=== PATIENT | male | born 1970 | race Caucasian/White ===

== ENCOUNTER 2020-07-27 11:08 | Emergency (ER) | payer OTHER, SELFPAY ==
--- NOTE | ~2020-07-27 | XR_ITS ---
EXAMINATION: XR finger 3rd RT min 2V DATE: 07/27/2020 11:42 INDICATION: Right hand third digit injury. TECHNIQUE: 4 views of right hand third digit were obtained. COMPARISON: None. FINDINGS: Bone alignment is normal. No fracture. 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 IMPRESSION: 1. No fracture. Reviewed, dictated and finalized at location A. IMPRESSION: 1. No fracture.
[2020-07-27 11:28] VITALS: BP 128/86; PULSE 60; RESP 16; TEMP 36.4; O2SAT 100
--- NOTE | 2020-07-27 11:33 | ED.UPPEXIN ---
HPI - Extremity Injury (Upper) General Chief Complaint: Extremity Injury, Upper Stated Complaint: Extremity Injury, Upper Time Seen by Provider: 07/27/20 11:33 Source: patient and RN notes reviewed History of Present Illness HPI narrative: Patient is a 50-year-old male who presents the urgent care with complaints of the third right finger injury. Patient states that he slammed it in between the barbell in the rack yesterday at the gym. Patient states that initially it was painful but he noticed last night that it became increase in swelling and pain. Patient has not taken anything [id number] for the pain. No other acute complaints. No acute distress noted. Patient aware of the plan of care. Some parts of this dictation were generated by voice recognition software and may contain typographical and/or grammatical inaccuracies. Related Data Home Medications Medication Instructions Recorded Confirmed No Home Medications 07/27/20 07/27/20 Allergies Allergy/AdvReac Type Severity Reaction Status Date / Time No Known Allergies Allergy Verified 07/27/20 11:22 Review of Systems Review of Systems: Narrative: CONSTITUTIONAL: Denies fever, chills, or sweats. EYES: Denies visual changes, redness, or discharge. ENT: Denies rhinorrhea, congestion, sore throat, or otalgia. CARDIOVASCULAR: Denies chest pain, palpitations, or edema. RESPIRATORY: Denies cough or dyspnea. GASTROINTESTINAL: Denies abdominal pain, nausea, vomiting, or diarrhea. GENITOURINARY: Denies dysuria or hematuria. SKIN: Denies rash or itching. MUSCULOSKELETAL: Reports of right finger injury with swelling and bruising NEUROLOGIC: Denies headache, numbness, or weakness. All other systems reviewed are negative, except as documented in HPI. PMFSH Comments At the time of my signature, I reviewed and agree with the nursing past medical, surgical, social, and family history. There is no relevant family history pertinent to the patient complaint. Exam Narrative: Exam Narrative: GENERAL: This is a well-nourished, well-developed patient, in no apparent distress. HEAD: normocephalic, atraumatic. EYES: PERRL. Sclera clear/white. Vision is grossly intact. EARS: External ears normal NOSE: External nose normal with no obvious nasal discharge, nares without redness, no rhinorrhea. THROAT: Mucous membranes moist SKIN: warm, intact with no suspicious lesions or rash, good texture and turgor. NEURO: awake, alert, and oriented to person, place and time. There were no obvious focal neurologic abnormalities. EXTREMITIES: Moderate ecchymosis and edema noted to the right third finger. Range of motion within normal limits with mild to moderate pain on flexion. Positive strong right radial pulse with capillary refill less than 2 seconds. Course Vital Signs Vital signs: Vital Signs Temperature 97.5 F L 07/27/20 11:28 Pulse Rate 60 07/27/20 11:28 Respiratory Rate 16 07/27/20 11:28 Blood Pressure 128/86 07/27/20 11:28 Pulse Oximetry 100 07/27/20 11:28 Temperature 97.5 F L 07/27/20 11:28 Pulse Rate 60 07/27/20 11:28 Respiratory Rate 16 07/27/20 11:28 Blood Pressure 128/86 07/27/20 11:28 Pulse Oximetry 100 07/27/20 11:28 Reviewed MDM - Extremity Injury (Upper) MDM Narrative Medical decision making narrative: Reviewed x-ray results with the patient. Aware the x-ray is negative for any deformity or fracture. Advised the patient to elevate the finger, use ice and take Tylenol/ibuprofen as needed for pain. If you develop any increase in pain associated with swelling or redness?go to the emergency room. If you notice no improvement over the past few days?may follow-up with referred plastics. Follow-up with your PCP within 2 to 5 days or for worsening symptoms or failure to improve. Differential Diagnosis Differential diagnosis: Likely finger sprain, dislocation of finger and fracture of hand Imaging Data Radiologist's impression: Boubacar Pichardo
== END 2020-07-27 12:05 | disposition home or self-care (01) ==
PROVIDERS: Emergency Provider Nurse Practitioner Family; PCP Internal Medicine Infectious Disease
DX: S60.031A Contusion of right middle finger without damage to nail, initial encounter (principal); X58.XXXA Exposure to other specified factors, initial encounter
CPT/HCPCS: 73140; 99213; G0463

== ENCOUNTER 2021-05-15 16:04 | Emergency (ER) | payer SELFPAY ==
[2021-05-15 16:10] VITALS: BP 129/77; PULSE 97; RESP 18; TEMP 37.1; O2SAT 99
--- NOTE | 2021-05-15 16:16 | ED.ABDPAIN ---
HPI - Abdominal Pain General Chief Complaint: Abdominal Pain Stated Complaint: stomach pains and diarrhea Time Seen by Provider: 05/15/21 16:17 Source: patient Mode of arrival: ambulatory Limitations: no limitations History of Present Illness HPI narrative: 51-year-old male presented for complaint of diarrhea for 3 days. Endorses associated abdominal cramping but states it is getting better since the onset. Endorses about 3-4 stools per day. Denies decreased appetite, has been tolerating bland foods and liquid. denies hematochezia or melena, nausea, vomiting, fever or chills, urinary complaints. Denies sick contacts. Patient is not vaccinated. Denies significant past medical history. Related Data Home Medications Medication Instructions Recorded Confirmed No Home Medications 07/27/20 05/15/21 Allergies Allergy/AdvReac Type Severity Reaction Status Date / Time No Known Allergies Allergy Verified 07/27/20 11:22 Review of Systems Review of Systems: CONSTITUTIONAL: Denies body aches, fever, chills, or sweats. EYES: Denies visual changes, redness, or discharge. ENT: Denies rhinorrhea, congestion CARDIOVASCULAR: Denies chest pain, palpitations, or edema. RESPIRATORY: Denies cough or dyspnea. GASTROINTESTINAL: Endorses abdominal cramping, diarrhea. Denies hematochezia, melena, hematemesis pain, nausea, vomiting GENITOURINARY: Denies dysuria or hematuria. SKIN: Denies rash MUSCULOSKELETAL: Denies back pain or myalgia. NEUROLOGIC: Denies headache, numbness, tingling, or weakness. PSYCH: Denies depression or anxiety. All systems reviewed & are unremarkable except as noted in HPI and below PMFSH Comments At time of signature, I have reviewed and agree with nursing past medical, surgical, social and family history unless otherwise noted. Please see nursing chart for further information. There is no relevant family history pertinent to the presenting complaint Exam Narrative: GENERAL: Well-appearing, well-nourished, and in no acute distress. HEAD: Normocephalic, atraumatic. EYES: EOMI. No redness or drainage. Conjunctivae normal. ENT: Mucous membranes pink and moist. NECK: Normal AROM. Supple. CHEST: No respiratory distress. Clear to auscultation. HEART: Regular rate and rhythm. No murmur appreciated. ABDOMEN: nontender abdomen, No guarding, rebound tenderness; abd soft, nondistended, normal active bowel sounds. MUSCULOSKELETAL: No bony tenderness. EXTREMITIES: Normal range of motion. No edema. SKIN: Warm, dry, no rash. Capillary refill normal. Normal skin turgor. NEURO: No focal deficits. Alert and oriented x3. Gait steady. PSYCH: Normal affect. No signs of depression or anxiety. Course Course Emergency Course: Given patient's unremarkable abdominal exam, patient is nontoxic-appearing, no fever, will treat symptomatically at this time. He will follow up with his PCP or go to the ER for any worsening condition. Patient is aware of diagnosis, understands and agrees to treatment plan. Anticipatory guidance given. Patient agrees to follow-up as directed and is aware of reasons to seek care at the emergency department. Portions of this record may have been created with voice recognition software Level of Care: Express Care Visit MDM - Abdominal Pain Differential Diagnosis Differential diagnosis: Likely abdominal pain, acute appendicitis, gastroenteritis and other (Food poisoning, C. difficile, viral infection, parasitic infection,) Discharge Plan Discharge Clinical Impression: Diarrhea Qualifiers: Diarrhea type: unspecified type Qualified Code(s): R19.7 - Diarrhea, unspecified Patient Disposition: Home, Self-Care Condition: Stable Instructions: Antibiotic Form, Acute Diarrhea (ED) Additional Instructions: Stay hydrated. Take small sips of fluid containing electrolytes frequently. Ok to add bland foods like bananas, rice, toast, and applesauce. You should go to the hospital if you exper
== END 2021-05-15 16:35 | disposition home or self-care (01) ==
PROVIDERS: Emergency Provider Nurse Practitioner Family; PCP Internal Medicine Infectious Disease
DX: R19.7 Diarrhea, unspecified (principal)
CPT/HCPCS: 99211; G0463

== ENCOUNTER 2024-10-17 11:48 | Emergency (ER) | payer OTHER, SELFPAY ==
--- OUTSIDE RECORDS SUMMARY | 2024-10-17 11:50 | XMS_ITS | Data Portability ---
Author Organization [facility] MAMADOUAvivaBeaulieu [facility] Address [address] [place] [place] [address] Assessment No assessment recorded. Plan of Treatment Reminders Order Date Submit Date Provider Last Modified By Organization Details Last Modified Time Details Appointments None recorded. Lab lipid panel, serum 2014 015 [facility], [address], [place], [address], 6 02:52:32 CMP, serum or plasma 2014 015 [facility], [address], [place], [address], 6 02:52:33 HBsAg (hepatitis B surface Ag), EIA, serum 2014 015 [facility], [address] [place] [address], [facility] [address], [place], [address], 5 10:20:48 hbcab (hepatitis B core Ab) igm, serum 2014 015 [facility], [address] [place] [address], [facility] [address], [place], [address], 5 10:06:02 hsv (1+2) igm Ab, serum 2014 015 [facility], [address] [place] [address], [facility] [address], [place], [address], 5 10:20:48 hsv (1+2) igg, serum 2014 015 [facility], [address] [facility], [address], [place], [address], 5 10:06:02 CT + NG DNA, PCR, unspecifie d specimen 2014 015 [facility], [address] [facility] [address], [address], [place], [address], 5 10:06:03 RPR (rapid plasma reagin), serum 2014 015 [facility], [address] [facility] [address], [address], [place], [address], 5 10:06:03 HIV (1+O+2) Ab, serum 2014 015 [facility], [address], [address], [place], [address], 5 10:06:02 hepatitis C Ab, signal-to- cutoff, serum or plasma 2014 015 [facility], [address] [facility], [address], [place], [address], 5 10:06:03 Referral pulmonolog ist referral - Patient is not having any problems with Asthma.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 No sob ,no wheezing,n o sob with exertion.H is work place did the Spirometry and the FVC decreased by 16% and FEV1 decreased by 12% compared to 2011.Jaymie grijalva recommeded Pulmonolog y evaluation . 2014 ATHENAFAX Not available 11:53:17 Procedures None recorded. Surgeries None recorded. Imaging None recorded. Medication Orders escitalopr am 20 mg tablet 2015 [id number], [address] , [place], [place], [id number], 6 09:43:16 Ventolin HFA 90 mcg/actuat ion aerosol inhaler 2015 016 [id number], [address] , [place], [place], [id number], 6 09:43:17 escitalopr am 20 mg tablet 2015 016 [id number], [address] , [place], [place], [id number], 6 17:53:47 Patient TargetsNo targets recorded. 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 [email or web address] Not available 08/25/2014 10:18:58 03/28/2015 [id number] When You Want to Lose Weight: Care Instructions [email or web address] Not available 03/28/2015 17:45:32 learning about mood disorders kkunche Not available 03/28/2015 17:45:32 05/16/2015 [id number] When You Want to Lose Weight: Care Instructions [email or web address] Not available 05/17/2015 10:01:23 08/16/2015 [id number] When You Want to Lose Weight: Care Instructions [email or web address] Not available 08/16/2015 11:07:05 Patient declined Tdap vaccination ,Influenza vaccination and Pneumovax vaccination. Advised patient to do the labs. 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 Referring Physician: Carlos Alejo, Internal Medicine, Encounter Date: 03/28/2015 Results Created Date Observation Date Name Description Value Unit Range Abnormal Flag Note LastModifiedBy Organization Detail LastModifiedTime 12/10/19 15 12/10/2014 hbcab (hepa titis B core Ab) igm, serum hepatitis B core antibody (IgM) NON-RE ACTIVE non-re active normal Not Available [address], [address], 12/10/2014 07:46:53 12/10/19 15 12/10/2014 hepat itis C Ab, serum hepatitis C antibody NON-RE ACTIVE non-re active normal Not Available [address], [address], 12/10/2014 07:46:53 12/10/19 15 12/10/2014 hepat itis C Ab, serum signal to cut-off 0.02 <1.00 normal Not Available [address], [address], 12/10/2014 07:46:53 12/10/19 15 12/13/2014 HBsAg (hepa titis B surfa ce Ag), serum donor, hep B surface Ag Nonrea ctive nonrea ctive This test is for eligi bilit y deter minat ion of Donor s of blood and blood compo nents and human cells , tissu es, and cellu lar and tissu e based produ cts (HCT/ Ps). This test is not inten ded to be used for routi ne clini tunde or routi ne diagn ostic evalu ation . Not Available [address], [address], 12/13/2014 15:59:14 12/10/19 15 12/13/2014 HIV (1+2) Ab, serum (dono r) donor, HIV 1/2 plus O Ab, screen Nonrea ctive nonrea ctive This test is for veronica bilit y mac minat ion of Donor s of blood and blood compo nents and human cells , tissu es, and cellu lar and tissu e based produ cts (HCT/ Ps). This test is not inten ded to be used for routi ne clini tunde or routi ne diagn ostic evalu ation . Not Available [facility] [address] [address] [place], [address], 12/13/2014 16:20:14 12/10/19 15 12/12/2014 hsv (1+2) igg, serum hsv 1 IgG type specific Ab 1.31 high Not Available [facility] [employer] [address] [address] [place], [address], 12/12/2014 03:45:06 12/10/19 15 12/12/2014 hsv (1+2) igg, serum hsv 2 IgG type specific Ab <0.90 REFER ENCE RANGE : <0.90 NEGAT BENITA INTER PRETI VE CRITE DELORES: <0.90 NEGAT BENITA 0.90- 1.10 EQUIV OCAL >1.10 POSIT BENITA This assay utili zes recom binan t type- speci fic antig ens to diffe renti ate HSV-1 from HSV-2 infec tions . A posit benita resul t canno t disti nguis h betwe en recen t and past infec tion. If recen t HSV infec tion is suspe cted but the resul ts are negat benita or equiv ocal, the assay shoul d be repea peri in 4-6 weeks . The perfo rmanc e kelli cteri stics of the assay have not been estab lishe d for pedia tric popul ation s, immun ocomp romis ed patie nts, or neona stephie scree carlos. Not Available [facility] [address] [address] [place], [address], 12/12/2014 03:45:06 12/10/19 15 12/11/2014 hsv (1+2) igm Ab, quant , serum , refle x titer hsv 1 IgM screen NEGATI VE Not Available [address], [address], 12/11/2014 23:45:13 12/10/19 15 12/11/2014 hsv (1+2) igm Ab, quant , serum , refle x titer hsv 2 IgM screen NEGATI VE REFER ENCE RANGE : NEGAT BENITA The IFA proce dure for measu ring IgM antib odies to HSV 1 and HSV 2 detec ts both type- commo n and type- speci fic HSV antib odies . Thus, IgM react ivity to both HSV 1 and HSV 2 may repre sent cross react benita HSV antib odies rathe r than expos ure to both HSV 1 and HSV 2. This test was devel oped and its perfo rmanc e kelli cteri stics have been deter mined by Laverne tinoco. Perfo rmanc e kelli cteri stics refer to the david tical perfo rmanc e of the test. Not Available [address] [place], [address], 12/11/2014 23:45:13 12/10/19 15 12/10/2014 CT + NG RNA, PCR, unspe cifie d speci men chlamydia trachomatis RNA, tma NOT DETECT ED not detect ed normal Not Available [facility] [address], [address], 12/10/2014 17:36:31 12/10/19 15 12/10/2014 CT + NG RNA, PCR, unspe cifie d speci men neisseria gonorrhoeae RNA, tma NOT DETECT ED not detect ed normal Not Available [facility] [address] [place], [address], 12/10/2014 17:36:31 12/10/19 15 12/10/2014 CT + NG RNA, PCR, unspe cifie d speci men comment This test was perfo rmed using the APTIM A COMBO 2 Assay ([employer] . The david tical perfo rmanc e kelli cteri stics of this assay , when used to test SureP ath speci mens have been deter mined by [facility] adrianna tinoco. Not Available [facility] [address] [address] [place], [address], 12/10/2014 17:36:31 12/10/19 15 12/10/2014 RPR (rapi d plasm a reagi n), serum RPR (DX) w/refl titer and confirmatory testing NON-RE ACTIVE non-re active normal Not Available [facility] [address], [address], 12/10/2014 16:20:21 09/02/19 16 09/03/2015 lipid panel , serum cholesterol, total 175 mg/dL 125-20 0 normal Not Available [facility] [address], [address], 09/03/2015 02:52:32 09/02/19 16 09/03/2015 lipid panel , serum HDL cholesterol 46 mg/dL > or = 40 normal Not Available [facility] [address], [address], 09/03/2015 02:52:32 09/02/19 16 09/03/2015 lipid panel , serum triglyceride s 88 mg/dL <150 normal Not Available [facility] [address], [address], 09/03/2015 02:52:32 09/02/19 16 09/03/2015 lipid panel , serum LDL-choleste rol 111 mg/dL _(tunde c) <130 normal Mary able range <100 mg/dL for patie nts with CHD or diabe dave and <70 mg/dL for diabe tic patie nts with known heart disea se. Not Available [facility] [address] [address] [place], [address], 09/03/2015 02:52:32 09/02/19 16 09/03/2015 lipid panel , serum chol/HDLC ratio 3.8 (calc ) < or = 5.0 normal Not Available [address], [address], 09/03/2015 02:52:32 09/02/19 16 09/03/2015 lipid panel , serum non HDL cholesterol 129 mg/dL _(tunde c) normal Targe t for non-H DL jalen stero l is 30 mg/dL highe r than LDL jalen stero l targe t. Not Available [address], [address], 09/03/2015 02:52:32 09/02/19 16 09/03/2015 CMP, serum or plasm a glucose 85 mg/dL 65-99 normal Fasti ng refer ence inter sangeetha Not Available [address], [address], 09/03/2015 02:52:33 09/02/19 16 09/03/2015 CMP, serum or plasm a urea nitrogen (BUN) 13 mg/dL 7-25 normal Not Available [address], [address], 09/03/2015 02:52:33 09/02/19 16 09/03/2015 CMP, serum or plasm a creatinine 1.13 mg/dL 0.60-1 .35 normal Not Available [address], [address], 09/03/2015 02:52:33 09/02/19 16 09/03/2015 CMP, serum or plasm a eGFR non-afr. [place] citizen 79 mL/mi n/1.7 3m2 > or = 60 normal Not Available [address], [address], 09/03/2015 02:52:33 09/02/19 16 09/03/2015 CMP, serum or plasm a eGFR 91 mL/mi n/1.7 3m2 > or = 60 normal Not Available [address], [address], 09/03/2015 02:52:33 09/02/19 16 09/03/2015 CMP, serum or plasm a BUN/creatini ne ratio NOT APPLIC ABLE (calc ) 6-22 Not Available [address], [address], 09/03/2015 02:52:33 09/02/19 16 09/03/2015 CMP, serum or plasm a sodium 139 mmol/ L 135-14 6 normal Not Available [address], [address], 09/03/2015 02:52:33 09/02/19 16 09/03/2015 CMP, serum or plasm a potassium 4.1 mmol/ L 3.5-5. 3 normal Not Available [address], [address], 09/03/2015 02:52:33 09/02/19 16 09/03/2015 CMP, serum or plasm a chloride 103 mmol/ L 98-110 normal Not Available [address], [address], 09/03/2015 02:52:33 09/02/19 16 09/03/2015 CMP, serum or plasm a carbon dioxide 29 mmol/ L 19-30 normal Not Available [address], [address], 09/03/2015 02:52:33 09/02/19 16 09/03/2015 CMP, serum or plasm a calcium 9.3 mg/dL 8.6-10 .3 normal Not Available [address], [address], 09/03/2015 02:52:33 09/02/19 16 09/03/2015 CMP, serum or plasm a protein, total 7.3 g/dL 6.1-8. 1 normal Not Available [address], [address], 09/03/2015 02:52:33 09/02/19 16 09/03/2015 CMP, serum or plasm a albumin 4.3 g/dL 3.6-5. 1 normal Not Available [address], [address], 09/03/2015 02:52:33 09/02/19 16 09/03/2015 CMP, serum or plasm a globulin 3.0 g/dL_ (calc ) 1.9-3. 7 normal Not Available [address], [address], 09/03/2015 02:52:33 09/02/19 16 09/03/2015 CMP, serum or plasm a albumin/glob ulin ratio 1.4 (calc ) 1.0-2. 5 normal Not Available [address], [address], 09/03/2015 02:52:33 09/02/19 16 09/03/2015 CMP, serum or plasm a bilirubin, total 0.4 mg/dL 0.2-1. 2 normal Not Available [address], [address], 09/03/2015 02:52:33 09/02/19 16 09/03/2015 CMP, serum or plasm a alkaline phosphatase 47 U/L 40-115 normal Not Available [facility] [employer] [address] [address] [place], [address], 09/03/2015 02:52:33 09/02/19 16 09/03/2015 CMP, serum or plasm a AST 27 U/L 10-40 normal Not Available [address], [address], 09/03/2015 02:52:33 09/02/19 16 09/03/2015 CMP, serum or plasm a ALT 22 U/L 9-46 normal Not Available [facility] [address], [place], [address], 09/03/2015 02:52:33 03/30/20 15 03/16/2015 pulmo nary funct ion test* No observ ation record ed. [email or web address] Not Available 15:31:50 Result Notes None recorded. Problems Name Problem SNOMED Code Status Onset Date Resolution Date Notes Provider Name and Address Organization Details Recorded Time Depressive disorder 28461560 Active Carlos Alejo null, [place] - [facility] 5 17:45:32 Low back pain 563184344 Active Maria L perez [place], [place] [facility] 5 09:35:42 Asthma 980971849 Active Maria L perez [place], [place] [facility] 5 09:35:42 Mild intermittent asthma 482833659 Active Carlos Alejo [place] [facility] 6 09:43:16 Obesity 204881972 Active Carlos Alejo [place] [facility] 6 17:53:47 Chronic depression 296714909 Active Carlos Alejo [place] [facility] 6 09:43:16 Morbid obesity 021995961 Active [place] Alejo [place] [facility] 6 09:43:16 Problem Notes None recorded. Procedures Surgical History Date Name Laterality Status Provider Name and Address Organization Details Recorded Time Vasectomy completed Maria L Bean MA [place] - [facility] 08/25/2014 09:35:42 Imaging Results None recorded. Procedure Notes None recorded. Medical Equipment None Reported. Allergies No known drug allergies Medications Name Sig Start Date Stop Date Status Note LastModified by Organization Details LastModified Time amoxicillin 500 mg capsule active Not Available Not Available Not Available hydrocodone 5 mg-acetamino phen 325 mg tablet active Not Available Not Available Not Available terbinafine HCl 250 mg tablet Take 1 tablet every day by oral route for 30 days. active Not Available Not Available No t Available diclofenac sodium 50 mg tablet,delay ed release active Not Available Not Available N ot Available Ventolin HFA 90 mcg/actuatio n aerosol inhaler Inhale 2 puffs every 6 hours by inhalation route as needed. active Not Available Not Available No t Available ciclopirox 0.77 % topical cream active Not Available Not Available Not Available escitalopram 10 mg tablet TAKE 1 TABLET BY MOUTH EVERY DAY active Not Available Not Available No t Available escitalopram 20 mg tablet TAKE 1 TABLET BY MOUTH EVERY DAY active Not Available Not Available No t Available naftifine 2 % topical cream active Not Available Not Available Not Available Naftin 2 % topical gel active Not Available Not Available Not Available Vitals Date Recorded Body temperature Body mass index (BMI) Heart rate Body weight Respiratory rate Oxygen saturation Oxygen saturation in Arterial blood by Pulse oximetry Body height Systolic And Diastolic Provider Name and Address Organization Details Last Updated DateTime 6 98.1 [degF] 39.4 kg/m2 74 /min 258640. 09712 g 16 /min 99 % 99 % 167.64 cm 110/80 mm[Hg] Maria L perez MA [facility] 6 17:09:13 Date Recorded Body height Body weight Heart rate Oxygen saturation Oxygen saturation in Arterial blood by Pulse oximetry Body temperature Respiratory rate Body mass index (BMI) Systolic And Diastolic Provider Name and Address Organization Details Last Updated DateTime 6 167.64 cm 884379. 47600 g 70 /min 96 % 96 % 97.9 [degF] 16 /min 40.5 kg/m2 120/90 mm[Hg] Maria L perez MA [facility] 6 09:20:18 Date Recorded Respiratory rate Oxygen saturation Oxygen saturation in Arterial blood by Pulse oximetry Body weight Heart rate Body mass index (BMI) Body height Body temperature Systolic And Diastolic Provider Name and Address Organization Details Last Updated DateTime 5 14 /min 98 % 98 % 768897. 73140 g 64 /min 38.3 kg/m2 167.64 cm 98.2 [degF] 120/80 mm[Hg] Maria L perez MA [facility] 5 09:43:19 Date Recorded Respiratory rate Body weight Oxygen saturation Oxygen saturation in Arterial blood by Pulse oximetry Body temperature Heart rate Body height Body mass index (BMI) Systolic And Diastolic Provider Name and Address Organization Details Last Updated DateTime 5 14 /min 549242. 69232 g 100 % 100 % 97.9 [degF] 66 /min 167.64 cm 37.4 kg/m2 120/70 mm[Hg] Maria L perez MA [facility] 5 09:30:17 Date Recorded Respiratory rate Body weight Oxygen saturation Oxygen saturation in Arterial blood by Pulse oximetry Body height Body mass index (BMI) Body temperature Heart rate Systolic And Diastolic Provider Name and Address Organization Details Last Updated DateTime 5 16 /min 298355. 17541 g 99 % 99 % 167.64 cm 39.4 kg/m2 97.7 [degF] 84 /min 120/70 mm[Hg] Maria L Tannermitchel DOMINGO perez [facility] 5 11:04:03 Social History Question Answer Notes LastModified by [email or web address] Details LastModified Time Tobacco Smoking Status Former Smoker [facility] 08/25/2014 09:35:42 How Much Tobacco Do You Smoke? 0.5 PPD Information not available 08/25/2014 Sex: Unknown Functional Status Question Answer Note LastModified by [employer] Details LastModified Time What is your level of alcohol consumption? Moderate 2-4 drinks once a weekly Information not available 08/25/2014 Mental Status None recorded. Family History Nothing Reported. Medical History Condition Response Depression Y Muscle, Joint, or Bone Problems Y Asthma Y Past Encounters Encounter ID Performer Location Encounter Start Date Encounter Closed Date Diagnosis/Indication Diagnosis SNOMED-CT Code Diagnosis ICD10 Code Diagnosis Note [id number] MD Stef Saab (Adult Med) [address] [place] [address] 08/25/2014 09:07:26 08/25/2014 10:12:17 Depressive disorder 80613840 Stable on Lexapro. Mild inter mittent asthma 062821855 Continue Ventolin Hfa 2 uffs q 6h prn. Patient is using Ventolin as needed.No regular symptoms. Obesity 736760215 Advise d patient less than [address] low fat,low cholestero l,low carb diet,regul ar exercise and weight reduction. [id number] MD Stef Saab (Adult Med) [address] [place] [address] 12/08/2014 09:06:52 12/08/2014 10:23:18 High risk sexual behavior 741976040 Patient wants to check for STD screening. High risk sexual behavior. Asymptomat ic. 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 No sob ,no wheezing,n o sob with exertion.H is work place did the Spirometry and the FVC decreased by 16% and FEV1 decreased by 12% compared to 2012.Emplo valentine recommende d Pulmonolog y evaluation . Continue Ventolin Hfa 2 uffs q 6h prn. Depressive disorder 3548 9007 F32.9 Stable on Lexapro. Obesity 332454155 E66.09 Advised patient less than [address] low fat,low cholestero l,low carb diet,regul ar exercise and weight reduction. [id number] MD Stef Saab (Adult Med) [address] [place] [address] 05/16/2015 15:47:04 05/17/2015 16:30:37 Chronic depression 767494149 F34.1 Patient is c/o more anxiety and depression . will increase the Lexapro to 20 mg po daily. Advised regular exercise. Obesity 816499588 E66.09 Advised patient less than [address] low fat,low cholestero l,low carb diet,regul ar exercise and weight reduction. [id number] MD Stef Saab (Adult Med) [address] [place] [address] 08/16/2015 08:57:00 08/16/2015 10:21:27 Chronic depression 299521069 F34.1 Anxiety and depression well controlled with Lexapro. Continue Lexapro to 20 mg po daily. Advised regular exercise. Mild inter mittent asthma 614719897 J45.20 No active symptoms. Continue Ventolin hfa 2 puffs q 6h prn. Morbid obesity 733443608 E66.01 Advised patient less than [address] low fat,low cholestero l,low carb diet,regul ar exercise and weight reduction. Health Concerns Section Related Observation LastModified by Organization Detai ls LastModified Time None Recorded Concern Status LastModified by Organization Details LastModified Time None Recorded Advance Directives Directive None Recorded Payers Insurance Date Sequence Insurance Name Policy Number Policy Mccoy Covered Member ID Mccoy Member ID Guarantor Name 09/26/2017 1 [employer] (POS II) [id number] Devaughn Balderas [id number] Devaughn Balderas Notes Date Note Type Note Provider Name and Address Organization Details Recorded Time 5 text/html Anxiety/DepressionReport ed bypatient.Quality:sympto ms improved Modifying Factors:medications as directed Associated Symptoms:denies homicidal ideations; mood good; no anxiety; maintaining functionalityAsthma F/UReported bypatient.Severity:does not interfere with daily activities Associated Symptoms:no fever; no fatigue; no irritability; no cough; normal appetite; no changes in productivity; no shortness of breathNotes:Patient is not having any problems with Asthma.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 LARON Turk S[facility] 03/28/2015 17:45:54 6 text/html Anxiety/DepressionReport ed bypatient.Quality:mood worse;increased anxiety Severity:denies suicidal ideations;interference with household activities Context:no major life stressors Associated Symptoms:denies homicidal ideations; no visual/auditory hallucinations; no delusions; no crying spells;high irritability;anxiety;dep ression LARON Turk SICatherine 05/16/2015 17:54:03 6 text/html Anxiety/DepressionReport ed bypatient.Quality:sympto ms improved Severity:denies suicidal ideations; able to maintain relationships; does not interfere with activities of daily living Associated Symptoms:denies homicidal ideations; mood good; no anxiety; no crying spells; sleeping well; appetite good; energy good; maintaining functionalityAsthma F/UReported bypatient.Severity:does not interfere with daily activities; Using inhaler as needed. Associated Symptoms:no fatigue; no cough; no changes in productivity; no shortness of breath Elza Velazquez RN [facility], [place] - [facility] 08/22/2015 14:06:08
--- OUTSIDE RECORDS SUMMARY | 2024-10-17 11:50 | XMS_ITS | Referral Summary ---
Author Organization [facility] [address] Address [address] [employer] [place] [address] Phone Care Team Providers Care Ocean Rescue Lieutenant Name Role Phone Shravan Escobar MD Primary Care Provider [phone] Allergies No known active allergies Medications albuterol HFA (PROVENTIL HFA,VENTOLIN HFA) 90 mcg/actuation inhalerIndicati ons:Exercise-in duced asthma Inhale 2 puffs every 4 (four) hours as needed for wheezing. 18 g 3 11/22/2016 Active LORazepam (ATIVAN) 1 mg tabletIndicatio ns:Reaction, adjustment, with anxious, depressed mood Take 1 tablet (1 mg total) by mouth nightly as needed for anxiety 30 tablet 2 04/13/2021 Active Active Problems Problem Noted Date Diagnosed Date Reaction, adjustment, with anxious, depressed mo od 01/13/2019 Overview (01/29/2020): Toxic relationship with his girlfriend. Not suicidal. Assessment & Plan (04/22/2021 2:28 PM WAREHOUSE RECORD CLERK): He continues to have ups and downs in his relationship with a younger woman. She is technically a tenant in his home. The relationship runs hot and cold. Recently he decided he had to break it off and essentially gave her a notice that she needed to leave by June 12. After that, their relationship stirred again, but he then found out that she had been seeing someone on the side. All of this has him very confused and sad. He cries when she goes to work because he misses her. He feels anxious and has trouble focusing. 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 He is not sleeping well. He denies feeling suicidal. He has good relationships with his family, and spoke to his sister for 3 hours last night. He did not benefit from Lexapro when we prescribed previously for a similar situation, although he only took one or two doses. He had good results talking to a counselor last time, but he currently does not have insurance so he has not spoken to his counselor recently. We discussed that he should probably make a clean break from this relationship, and look more towards the future than the past. We recommended that he continue talking to family and hopefully resume counseling when he gets his insurance with his new job. For the anxiety and sleep disorder, we will give him a small number of Ativan, risks of medication discussed. Follow-up in one month. Assessment & Plan (02/23/2020 8:33 AM WAREHOUSE RECORD CLERK): He is doing better, feeling more at ease. He has only use the Xanax 3 times in the last two weeks. On one occasion it did not seem to make a difference, but on the other occasions it did help him calm down. He remains off work and this is probably helping as well. We will keep him off work until February 21. He has also had one remote counseling session which he says went well. It gave him insight into his feelings. Today he is at ease and mild mannered. There is no evidence of depression, thought disorder or delusional thinking. For follow-up, he prefers to return as scheduled in November of next year, but says he will call if an early follow-up is needed for anything. Assessment & Plan (02/06/2020 2:58 PM CDT): He has had a troubled relationship for about a year with his younger girlfriend. She was apparently abandoned by her father and has her own issues, but they are basically incompatible. They have talked about things before, but nothing seems to get resolved. The last two weeks have been especially bad, and he decided to get some help. He went to [facility] and they told him to talk to me. He is also getting telephone counseling with a SENIOR JAVA WEB APPLICATION DEVELOPER. His mood is up and down. He gets angry easily. He is depressed but not suicidal, and at times is anxious. He is not sleeping well. He does not want to go back on an antidepressant. He did not find that it helped much in the past. We will put him on a low-dose of Xanax, risks of medication discussed. We will keep him off work for two weeks and have him follow-up before going back to see how he is doing. Obesity (BMI 30-39.9) 05/02/2016 Assessment & Plan (04/22/2021 2:31 PM WAREHOUSE RECORD CLERK): His weight is basically unchanged. We discussed that eating right, regular activity and significant weight loss could help him feel better emotionally. Assessment & Plan (11/30/2020 9:33 AM CDT): His weight is down a few lb. We encouraged continued attention to his diet, and a little bit more weight loss. Fasting blood sugar on his last set of labs was minimally elevated. Lab Results Component Value Date GLUCOSE 106 (H) 02/09/2020 CALCIUM 9.8 02/09/2020 SODIUM 143 02/09/2020 POTASSIUM 5.0 02/09/2020 CO2 31 02/09/2020 CHLORIDE 105 02/09/2020 BUNSER 15 02/09/2020 CREATININE 1.24 02/09/2020 Lab Results Component Value Date ALT 20 02/09/2020 AST 18 02/09/2020 ALKPHOS 53 02/09/2020 BILITOT 0.5 02/09/2020 Sciatica 01/22/2014 Overview (07/19/2016): Sciatica Male erectile disorder 11/13/2013 Assessment & Plan (11/23/2019 3:52 PM CDT): He requested a refill of sildenafil which we sent in. Low testosterone 11/13/2013 Persistent mood disorder 11/13/2013 Assessment & Plan (11/30/2020 9:32 AM CDT): He is doing much better. He is no longer needing alprazolam/Xanax. In fact he only ever took one or two doses. We discontinued medication from his list. Assessment & Plan (11/29/2019 4:42 PM CDT): Mood is much better. He stopped taking citalopram a couple of years ago. There has been no relapse of his previous mood problems. Low back pain 01/14/2012 Overview (11/23/2019): Arthritis and bulging disks. Sees a chiropractor. Improved with significant weight loss. Assessment & Plan (11/30/2020 9:33 AM CDT): He has some issues with chronic low back pain and occasional right sciatic radiation, nothing severe or even persistent. He takes Tylenol as needed. Weight loss has improved his back. Assessment & Plan (11/23/2019 3:52 PM CDT): This has significantly improved since he lost weight. He no longer takes any nonsteroidals. He continues efforts to shed more weight. Exercise-induced asthma 04/15/2009 Assessment & Plan (11/30/2020 9:33 AM CDT): He has an albuterol inhaler for use as needed. Lungs are clear and oxygen saturation is normal. Continue same. Assessment & Plan (11/23/2019 3:51 PM CDT): He has mild asthma. He uses an inhaler as needed. Lungs are clear and oxygen saturation is normal. Continue same. History of tobacco use 10/13/1988 Assessment & Plan (11/23/2019 3:51 PM CDT): He was an in different smoker for about 10 years. He has not smoked in over 20 years. Social History Tobacco Use Types Packs/Day Years Used Date Smoking Tobacco: Former Cigarettes - 1994 Smokeless Tobacco: Former Tobacco Cessation:Counseling Given: Yes Comments:Some day smoker in the past. Alcohol Use Standard Drinks/Week Comments Yes 0 (1 standard drink = 0.6 oz pur e alcohol) PHQ-2 Answer Date Recorded PHQ-2 Total Score (If total score is 3 or more points, staff should administer the PHQ-9) 4 04/13/2021 Sex and Gender Information Value Date Recorded Sex Assigned at Not on file Legal Sex Male 5:39 PM WAREHOUSE RECORD CLERK Gender Identity Not on file Sexual Orientation Not on file Last Filed Vital Signs Vital Sign Reading Time Taken Comments Blood Pressure 130/86 04/13/2021 12:56 PM WAREHOUSE RECORD CLERK Pulse 79 04/13/2021 12:56 PM WAREHOUSE RECORD CLERK Temperature 36.1 C (96.9 F) 04/13/2021 12:56 PM WAREHOUSE RECORD CLERK Respiratory Rate 12 04/13/2021 12:56 PM WAREHOUSE RECORD CLERK Oxygen Saturation 98% 04/13/2021 12:56 PM WAREHOUSE RECORD CLERK Inhaled Oxygen Concentration - - Weight 104.8 kg (231 lb) 04/13/2021 12:56 PM WAREHOUSE RECORD CLERK Height 167.6 cm (5' 6) 11/30/2020 8:59 AM CDT Body Mass Index 37.28 11/30/2020 8:59 AM CDT Plan of Treatment Not on file Insurance [facility] PPO Care Teams Ocean Rescue Lieutenant Relationship Specialty Start Date End Date Shravan Escobar MD [address] [place] [address] PCP - General Infectious Diseases 10/08/16
--- OUTSIDE RECORDS SUMMARY | 2024-10-17 11:50 | XMS_ITS | Clinical Summary ---
Author Organization [facility] [address] Address [address] [place] [address] Phone Care Team Providers Care Taximeter Repairer Name Role Phone Shravan Escobar MD Primary Care Provider [phone] Allergies No known active allergies Medications albuterol [...] suicidal. Assessment & Plan (04/22/2021 2:28 PM MANAGER ASSET MANAGEMENT): He continues to have ups and downs [...] month. Assessment & Plan (02/23/2020 8:33 AM MANAGER ASSET MANAGEMENT): He is doing better, feeling more at [...] is also getting telephone counseling with a MEDICAL SUPPORT ASSISTANT. His mood is up and down. He [...] 05/02/2016 Assessment & Plan (04/22/2021 2:31 PM MANAGER ASSET MANAGEMENT): His weight is basically unchanged. We discussed [...] has not smoked in over 20 years. 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 Medical History Medical History Date Comments Exercise-induced asthma Asthma Chicken pox 1975 Non morbid obesity 05/02/2016 Covid-19 01/04/2021 Mild illness wit h positive test reported by patient, details lacking. Family History * Patient is adopted Medical History Relation Name Comments Other Father Back problems. Arthritis Mother Relation Name Status Comments Father Alive Mother Alive Social History Tobacco Use Types Packs/Day Years Used Date Smoking Tobacco: Former Cigarettes 1994 Smokeless Tobacco: Former Tobacco Cessation:Counseling Given: [...] on file Legal Sex Male 5:39 PM MANAGER ASSET MANAGEMENT Gender Identity Not on file Sexual Orientation Not on file Obstetrics History Last Filed Vital Signs Vital Sign Reading Time Taken Comments Blood Pressure 130/86 04/13/2021 12:56 PM MANAGER ASSET MANAGEMENT Pulse 79 04/13/2021 12:56 PM MANAGER ASSET MANAGEMENT Temperature 36.1 C (96.9 F) 04/13/2021 12:56 PM MANAGER ASSET MANAGEMENT Respiratory Rate 12 04/13/2021 12:56 PM MANAGER ASSET MANAGEMENT Oxygen Saturation 98% 04/13/2021 12:56 PM MANAGER ASSET MANAGEMENT Inhaled Oxygen Concentration - - Weight 104.8 kg (231 lb) 04/13/2021 12:56 PM MANAGER ASSET MANAGEMENT Height 167.6 cm (5' 6) 11/30/2020 8:59 AM CDT Body Mass Index 37.28 11/30/2020 8:59 AM CDT Plan of Treatment Not on file Insurance [facility] PPO Care Teams Taximeter Repairer Relationship Specialty Start Date End Date Shravan Escobar MD [address] [place] [address] PCP - General Infectious Diseases 10/08/16
--- OUTSIDE RECORDS SUMMARY | 2024-10-17 11:50 | XMS_ITS | Clinical Summary ---
Author Organization [facility] Address [address], [facility] [address] [place] [address] Phone Care Team Providers Care Certified Coder Name Role Phone Unavailable Primary Care Provider Unavailabl e Allergies No known active allergies Medications ALBUTEROL IN take by inhalation . Active Active Problems Problem Noted Date Diagnosed Date Physical exam, annual (Adult) 05/02/2016 Non morbid obesity due to excess calories 2016 Mild intermittent asthma without complication Family History * Patient is adopted Relation Name Status Comments Father Alive Mother Alive Social History Tobacco Use Types Packs/Day Years Used Date Smoking Tobacco: Former Cigarettes Q uit: 05/02/1995 Smokeless Tobacco: Former Alcohol Use Standard Drinks/Week Comments Yes 4 (1 standard drink = 0.6 oz pur e alcohol) Sex and Gender Information Value Date Recorded Sex Assigned at Not on file Legal Sex Male 9:48 PM CDT Gender Identity Not on file Sexual Orientation Not on file Last Filed Vital Signs Vital Sign Reading Time Taken Comments Blood Pressure 122/86 05/02/2016 3:29 PM HEATING ELEMENT BUILDER Pulse 73 05/02/2016 3:29 PM HEATING ELEMENT BUILDER Temperature 36.6 C (97.8 F) 05/02/2016 3:29 PM HEATING ELEMENT BUILDER Respiratory Rate 18 05/02/2016 3:29 PM HEATING ELEMENT BUILDER Oxygen Saturation 99% 05/02/2016 3:29 PM HEATING ELEMENT BUILDER Inhaled Oxygen Concentration - - Weight 112.9 kg (249 lb) 05/02/2016 3:29 PM HEATING ELEMENT BUILDER Height 167.6 cm (5' 6) 05/02/2016 3:29 PM HEATING ELEMENT BUILDER Body Mass Index 40.19 05/02/2016 3:29 PM HEATING ELEMENT BUILDER Plan of Treatment Health Maintenance Due Date Last Done Comments Hepatitis C Virus (HCV) Screening 1971 TdaP Immunization 1971 Pneumococcal Immunization Co mbined (1 of 2 - PCV) 1977 Hepatitis B Immunization (1 of 3 - 19+ 3-dose series) 1990 Pneumococcal Immunization (5 0+ years) (1 of 2 - PCV) 1990 Colonoscopy 2016 Colorectal Cancer Screening 2016 Cologuard 2021 Immunochemical Fecal Occult Blood 2021 Zoster Immunization (1 of 2) 2021 Influenza Immunization (#1) 2023 SARS-COV-2 Immunization ( - season) 2023 Respiratory Syncytial Virus (RSV) Immunization (Adult) (1 - 1-dose 75+ series) 2046 Meningococcal Immunization (ACWY) Aged Out No longer eligible based on patient's age to complete this topic Rotavirus Immunization Aged Out No lo nger eligible based on patient's age to complete this topic
[2024-10-17 12:03] VITALS: BP 141/90; PULSE 72; RESP 16; TEMP 36.6; O2SAT 100
--- NOTE | 2024-10-17 12:34 | ED.SKABFB ---
HPI - Skin/Abscess/Foreign Bdy General Chief complaint: Wound/Laceration Stated complaint: Skin Sore/Chest patient presents to the [facility] accompanied by 2 bouts with complaints of pain, redness, swelling to area in the center of chest that began over the last several days. Patient has been doing peroxide washes and applying triple antibiotic ointment with no relief of symptoms. Patient does report he is significantly itchy and occasionally does have rashes but no history of abscesses or anything like this. Denies fever, chills, body aches, or drainage from the area. Related Data Allergies Allergy/AdvReac Type Severity Reaction Status Date / Time No Known Allergies Allergy Verified 10/17/24 12:04 Review of Systems Constitutional: Constitutional: Reports as per HPI, Denies chills, Denies fatigue, Denies fever(s) and Denies weakness Eyes: Eyes: Reports no additional eye complaints Cardiovascular: Cardiovascular: Reports no additional cardiovascular complaints Respiratory: Respiratory: Reports no additional respiratory complaints Gastrointestinal: Gastrointestinal: Reports no additional gastrointestinal complaints Genitourinary: Genitourinary: Reports no additional male genitourinary complaints Musculoskeletal: Musculoskeletal: Reports no additional musculoskeletal complaints Integumentary/Breasts: Skin/Breast: Reports as per HPI, Denies breast pain, Denies breast mass, Denies pruritus, Reports erythema, Denies rash and Denies skin ulcer Comments: Abscess/ingrown hair chest wall Neurologic: Reports as per HPI, Denies numbness and Denies weakness Psychiatric: Psychiatric: Reports no additional psychiatric complaints Endocrine: Endocrine: Reports no additional endocrine complaints Hematologic/Lymphatic: Hematologic/Lymphatic: Reports no additional hematologic/lymphatic complaints Allergic/Immunologic: Allergic/Immunologic: Reports no additional allergic/immunologic complaints Exam Const: General: healthy appearing and no acute distress Nutritional Appearance: well nourished Orientation/consciousness: patient oriented x3 Limitations: no limitations Chest: Chest palpation & inspection: abnormal inspection of the chest ( abscess noted with center of chest wall), tenderness and No Pacemaker present Resp: Effort & Inspection: normal respiratory effort Auscultation: clear to auscultation bilaterally Cardio: Rate: regular rate Rhythm: regular rhythm Skin: General skin exam: normal color Wounds: wounds noted Other: abscess 4 cm in diameter to center of chest wall very firm in nature tenderness with palpation. No active drainage or crusting. Neuro: General: patient oriented x3 Speech: normal speech Gait exam (Neuro): Normal gait present Psych: Mental Status: mental status grossly normal Affect: normal affect Attitude: cooperative Course Course Level of Care: Express Care Visit Vital Signs Vital signs: Vital Signs Temperature 97.8 F 10/17/24 12:03 Pulse Rate 72 10/17/24 12:03 Respiratory Rate 16 10/17/24 12:03 Blood Pressure 141/90 H 10/17/24 12:03 Pulse Oximetry 100 10/17/24 12:03 Oxygen Delivery Room Air 10/17/24 12:03 Temperature 97.8 F 10/17/24 12:03 Pulse Rate 72 10/17/24 12:03 Respiratory Rate 16 10/17/24 12:03 Blood Pressure 141/90 H 10/17/24 12:03 Pulse Oximetry 100 10/17/24 12:03 Oxygen Delivery Room Air 10/17/24 12:03 MDM - Skin/Abscess/Foreign Bdy MDM Narrative Medical decision making narrative: Spoke with patient and spouse about incision and drainage at this time under not feel like this will be significantly helpful at this time. Recommended warm compresses to the areas start antibiotics and is possible. I educated patient and family when to return to urgent care or emergency room for incision and drainage Differential Diagnosis Differential diagnosis: Likely cellulitis, insect bites, impetigo and contact dermatitis Medical Records Attestation: I reviewed the patient's medical records. Discharge Plan Discharge Clinical Impression: Abscess of skin or subcutaneous tissue Patient Disposition: Home Condition: Stable Instructions: Antibiotic Form, Abscess (ED) Additional Instructions: DO NOT pick at the area. This will only make the area worse and drive infection deeper. Shower and wash with soapy water. Keep area clean and dry. Take all the antibiotics as prescribed. Remove the packing, about a ? inch daily until it falls out. Make sure to keep a dressing in place especially while it is draining Follow up with PCP in 7-10 days Return to Urgent care or go to the ER for worsened condition or Symptoms Patient Language: Latvian Prescriptions: New sulfamethoxazole-trimethoprim [Bactrim DS] 800-160 mg tablet 1 tablet PO Q12H Qty: 14 0RF Follow-up/Referrals: PHYSICIAN,FISHER [Primary Care Provider] - Time of Disposition: 12:50
== END 2024-10-17 12:57 | disposition home or self-care (01) ==
PROVIDERS: Emergency Provider Nurse Practitioner Family
DX: L02.213 Cutaneous abscess of chest wall (principal)
CPT/HCPCS: 99213; G0463

== ENCOUNTER 2024-11-14 12:30 | Emergency (ER) | payer OTHER, SELFPAY ==
--- OUTSIDE RECORDS SUMMARY | 2024-11-14 12:35 | XMS_ITS | Clinical Summary ---
Author Organization [facility] [address] Address [address] [place] [address] Phone Care Team Providers Care Coat Room Attendant Name Role Phone No, Physician Primary Care Provider [phone] Allergies No known active allergies Medications albuterol [...] suicidal. Assessment & Plan (04/22/2021 2:28 PM EDGER TAILER): He continues to have ups and downs [...] month. Assessment & Plan (02/23/2020 8:33 AM EDGER TAILER): He is doing better, feeling more at [...] to get some help. He went to [facility] and they told him to talk to me. He is also getting telephone counseling with a [employer] HELPER. His mood is up and down. He [...] 05/02/2016 Assessment & Plan (04/22/2021 2:31 PM EDGER TAILER): His weight is basically unchanged. We discussed [...] has not smoked in over 20 years. 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 Medical History Medical History Date Comments Exercise-induced asthma Asthma Chicken pox 1976 Non morbid obesity 05/02/2016 Covid-19 01/04/2021 Mild [...] staff should administer the PHQ-9) 4 04/13/2021 Personal Safety Answer Date Recorded Have you ever been in or are you currently in a harmful physical or emotional relationship or is someone making you feel afraid or unsafe? Denies 11/13/2024 Sex and Gender Information Value Date Recorded Sex Assigned at Not on file Legal Sex Male 5:39 PM EDGER TAILER Gender Identity Not on file Sexual Orientation Not on file Obstetrics History Last Filed Vital Signs Vital Sign Reading Time Taken Comments Blood Pressure 135/78 11/13/2024 9:00 AM CDT Pulse 89 11/13/2024 9:00 AM CDT Temperature 36.1 C (97 F) 11/13/2024 8:13 AM CDT Respiratory Rate 14 11/13/2024 9:00 AM CDT Oxygen Saturation 97% 11/13/2024 9:00 AM CDT Inhaled Oxygen Concentration - - Weight 106.6 kg (235 lb) 11/13/2024 8:13 AM CDT Height 167.6 cm (5' 6) 11/13/2024 8:13 AM CDT Body Mass Index 37.93 11/13/2024 8:13 AM CDT Plan of Treatment Health Maintenance Due Date Last Done Comments Colon Cancer Screening-Colonoscopy 1971 Hepatitis C Screening 1971 Prostate Cancer Screening-PSA 1971 DTaP/Tdap/Td Vaccine (1 - Tdap) 1982 Hepatitis B Screening 1989 Pneumococcal vaccine <65 (1 of 2 - PCV) 1990 Zoster Vaccine (1 of 2) 2021 Regular Well Visit/Exam 18-64 11/30/2021 11/30/2020, 11/23/2019 Depression Screening 04/13/2022 04/13/2021, 04/13/2021, 11/30/2020, Additional history exists Influenza Vaccine (#1) 2024 Procedures Procedure Name Priority Date/Time Associated Diagnosis Comments EGFR STAT 11/13/2024 8:48 AM CDT DIFFERENTIAL AUTO STAT 11/13/2024 8:4 8 AM CDT CARBOXYHEMOGLOBIN, VENOUS STAT 11/13/2024 8:48 AM CDT TROPONIN T HIGH-SENSITIVITY SERIES (BASELINE, 2HR, 4HR, 6HR) STAT 11/13/2024 8:48 AM CDT COMPREHENSIVE METABOLIC PANEL STAT 11/13/2024 8:48 AM CDT CBC WITH AUTO DIFFERENTIAL STAT 11/13/2024 8:48 AM CDT XR CHEST 1 VIEW ED 11/13/2024 8:37 AM CDT ECG 12-LEAD STAT 11/13/2024 8:37 AM CDT from Last 3 Months Results * Troponin T high-sensitivity series (baseline, 2hr, 4hr, 6hr) (11/13/2024 8:48 AM CDT) Trop T hs <6 <=22 ng/L [facility] ([place]) Comment: Interpretive Data For further hscTnT resources including the diagnostic algorithm and an aid in interpretation, copy and paste this link: https://nrl.testcatalog.org/show/hsTrop Current Interpretive Data last revised 2020. Blood 11/13/2024 8:48 AM CDT 11/13/2024 8:52 AM CDT Jaden Damico MD LAB BLOOD ORDERABLE S Final Result [facility] MCDONAL[facility] [place]) 1 [facility] [place] [address] * Carboxyhemoglobin, venous (11/13/2024 8:48 AM CDT) Carboxyhemoglob in, venous 0.6 0.0 - 2.9 % Comment:Non-Smokers: <3.0%; Smokers <9.0% Blood 11/13/2024 8:48 AM CDT 11/13/2024 8:52 AM CDT Jaden Damico MD LAB BLOOD ORDERABLE S Final Result Performing Organization Address [facility] de Phone Number [facility]CDONAL[facility] [place]) 1 [facility] [place] [address] * eGFR (11/13/2024 8:48 AM CDT) eGFR 80 >=60 mL/min/1. 73 m2 Comment: Interpretive Data Reference Interval Normal >/= 90 mL/min/1.73m2 Mildly decreased* 60 - 89 mL/min/1.73m2 Mildly to moderately decreased 45 - 59 mL/min/1.73m2 Moderately to severely decreased 30 - 44 mL/min/1.73m2 Severely decreased 15 - 29 mL/min/1.73m2 Kidney Failure < 15 mL/min/1.73m2 *Relative to young adult level Estimated glomerular filtration rate is determined by the 2020 CKD-EPI equation recommended by the National Kidney Foundation (A Unifying Approach to GFR Estimation: Recommendations of the NKF-ASK Task Force on Reassessing the Inclusion of Race in Diagnosing Kidney Disease, JASN 2020). The CKD-EPI equation should not be used for patients with unstable renal function and has not been validated in children and those over 70. Current interpretive data was last reviewed 2021. Blood 11/13/2024 8:48 AM CDT 11/13/2024 8:52 AM CDT us Jaden Damico MD LAB BLOOD ORDERABLE S Final Result [facility]A MCDONALD ([place]) 1 [facility] [place] [address] * (ABNORMAL) Differential, auto (11/13/2024 8:48 AM CDT) Neutrophil abs 5.13 1.50 - 6.50 K/cumm Imm gran abs 0.02 0.00 - 0.10 K/cumm [facility] ([facility]) Lymphocyte abs 0.52(L) 0.80 - 3.30 K/cumm [facility] ([place]) Monocyte abs 0.40 0.20 - 0.80 K/cumm [facility] ([place]) Eosinophil abs 0.14 0.00 - 0.50 K/cumm [facility] ([place]) Basophil abs 0.04 0.00 - 0.10 K/cumm [facility] ([place]) Neutrophil pct 82.2 % [facility] ([place]) Comment: Interpretive Data Percent cell count reference ranges are not reported, since discordance with absolute values may lead to misinterpretation of CBC data. Current Interpretive Data was last revised on 2017. Imm gran pct 0.3 % [facility] ([place]) Comment: Interpretive Data Percent cell count reference ranges are not reported, since discordance with absolute values may lead to misinterpretation of CBC data. Current Interpretive Data was last revised on 2017. Lymphocyte pct 8.3 % [facility] ([place]) Comment: Interpretive Data Percent cell count reference ranges are not reported, since discordance with absolute values may lead to misinterpretation of CBC data. Current Interpretive Data was last revised on 2017. Monocyte pct 6.4 % [facility] ([place]) Comment: Interpretive Data Percent cell count reference ranges are not reported, since discordance with absolute values may lead to misinterpretation of CBC data. Current Interpretive Data was last revised on 2017. Eosinophil pct 2.2 % [facility] ([place]) Comment: Interpretive Data Percent cell count reference ranges are not reported, since discordance with absolute values may lead to misinterpretation of CBC data. Current Interpretive Data was last revised on 2017. Basophil pct 0.6 % [facility] ([place]) Comment: Interpretive Data Percent cell count reference ranges are not reported, since discordance with absolute values may lead to misinterpretation of CBC data. Current Interpretive Data was last revised on 2017. Blood 11/13/2024 8:48 AM CDT 11/13/2024 8:52 AM CDT us Jaden Damico MD LAB BLOOD ORDERABLE S Final Result [facility] ([place]) 1 [facility] [place] [address] * CBC with auto differential (11/13/2024 8:48 AM CDT) WBC 6.25 3.80 - 9.90 K/cumm Hgb 13.7 13.0 - 17.5 g/dL [facility] ([place]) Hct 41.2 38.9 - 50.3 % [facility] ([place]) Plt 232 150 - 400 K/cumm [facility] ([place]) MPV 9.4 9.1 - 12.3 fL [facility] ([place]) RBC 4.93 4.30 - 5.80 M/cumm [facility] ([place]) MCV 83.6 81.3 - 96.4 fL [facility] ([place]) MCH 27.8 27.1 - 33.3 pg [facility] ([place]) MCHC 33.3 32.3 - 35.7 g/dL [facility] ([place]) RDW CV 13.0 11.1 - 14.9 % [facility] ([place]) RDW SD 39.1 35.7 - 48.1 fL [facility] ([place]) NRBC abs 0.00 0.00 - 0.01 K/cumm [facility] ([place]) Blood 11/13/2024 8:48 AM CDT 11/13/2024 8:52 AM CDT us Jaden Damico MD LAB BLOOD ORDERABLE S Final Result [facility] ([place]) 1 [facility] [place] [address] * Comprehensive metabolic panel (11/13/2024 8:48 AM CDT) Sodium 140 135 - 145 mmol/L [facility] ([place]) Potassium, pl 4.2 3.3 - 4.9 mmol/L [facility] ([place]) Chloride 104 97 - 110 mmol/L [facility] ([place]) CO2 23 22 - 32 mmol/L [facility] ([place]) Anion gap 13 2 - 15 mmol/L [facility] ([place]) BUN 13 6 - 25 mg/dL [facility] ([place]) Creatinine 1.10 0.80 - 1.30 mg/dL [facility] ([place]) Glucose 104 70 - 199 mg/dL [facility] ([place]) Comment: Interpretive Data Fasting glucose >/= 126 mg/dl is diagnostic for diabetes. Fasting is defined as no caloric intake for at least 8 hours. Fasting glucose between 100 mg/dl to 125 mg/dl is diagnostic of prediabetes. In a patient with classic symptoms of hyperglycemia or hyperglycemic crisis, a random glucose >/= 200 mg/dl is diagnostic for diabetes. In the absence of unequivocal hyperglycemia, results should be confirmed by repeat testing. The classification and Diagnosis of Diabetes Diabetes Care 2021; 46: S19-S40. Current interpretive data was last revised 2022. Calcium 9.4 8.5 - 10.3 mg/dL [facility] ([place]) Bilirubin, total 0.5 0.1 - 1.2 mg/dL [facility] ([place]) Protein, pl 7.5 6.5 - 8.5 g/dL [facility] ([place]) Albumin 4.5 3.5 - 5.0 g/dL [facility] ([place]) Alk phos 69 40 - 130 Units/L [facility] ([place]) ALT 27 7 - 55 Units/L [facility] ([place]) AST 31 10 - 50 Units/L [facility] ([place]) Comment:Hemolysis present. R esults may be affected. Blood 11/13/2024 8:48 AM CDT 11/13/2024 8:52 AM CDT us Jaden Damico MD LAB BLOOD ORDERABLE S Final Result [facility] ([place]) 1 [facility] [place] [address] * XR Chest 1 View (11/13/2024 8:37 AM CDT) Anatomical Region Laterality Modality Body, Chest N/A Computed Radiogr aphy 11/13/2024 8:46 AM CDT Narrative 11/13/2024 8:47 AM CDT EXAM DESCRIPTION: XR CHEST 1 VIEW REASON FOR STUDY: dyspnea, c/f pna with concern for CO2 inhalation starting last week. States yesterday, he went to work and the CO2 alarm went off again. Endorses headache, shortness of breath, wheezing and a raspy voice that is abnormal TECHNIQUE: 1 radiographic view(s) of the chest. COMPARISON: No prior studies are available for comparison at time of this dictation. FINDINGS: LUNGS: No focal opacity, pleural effusion, or pneumothorax. HEART/MEDIASTINUM: Cardiac silhouette normal in size. Mediastinal and hilar contours appear normal. LINES/TUBES: None. BONES: No acute osseous abnormality. IMPRESSION: No acute cardiopulmonary abnormality. THIS IS AN ELECTRONICALLY VERIFIED FINAL REPORT 11/13/2024 8:47 AM - Electronically signed by Leonel Patricia M.D. MM: MM Report ID: [id number] Reading Location: [id number] Procedure Note Leonel Patricia MD - 11/13/2024 EXAM DESCRIPTION: XR CHEST 1 VIEW REASON FOR STUDY: dyspnea, c/f pna with concern for CO2 inhalation starting last week. States yesterday, hewent to work and the CO2 alarm went off again. Endorses headache, shortness of breath, wheezing and a raspy voice that is abnormal TECHNIQUE: 1 radiographic view(s) of the chest. COMPARISON: No prior studies are available for comparison at time of this dictation. FINDINGS: LUNGS: No focal opacity, pleural effusion, or pneumothorax. HEART/MEDIASTINUM: Cardiac silhouette normal in size. Mediastinal andhilar contours appear normal. LINES/TUBES: None. BONES: No acute osseous abnormality. IMPRESSION: No acute cardiopulmonary abnormality. THIS IS AN ELECTRONICALLY VERIFIED FINAL REPORT 11/13/2024 8:47 AM - Electronically signed by Leonel Patricia M.D. MM: MM Report ID: [id number] Reading Location: [id number] Jaden Damico MD IMG XR PROCEDURES F inal Result * ECG 12 lead (11/13/2024 8:37 AM CDT) 11/13/2024 8:37 AM CDT Narrative [facility] - 11/13/2024 2:06 PM CDT Vent Rate: 97 bpm RR Interval: 614 msec [place] Interval: 142 msec QRS Duration: 108 msec QT Interval: 328 msec QTC Interval: 383 msec P-R-T [place]: 43 - 21 - 17 degrees IMPRESSION: SINUS RHYTHM RV conduction delay Somewhat poor R-wave progression Consider left atrial enlargement No prior EKG for comparison Electronically Signed By: Dr Carlito Pike Jaden Damico MD ECG ORDERABLES Fin al Result [facility] [email or web address] [facility] from Last 3 Months Insurance [facility] PPO [facility] CHOICE PLUS Care Teams Coat Room Attendant Relationship Specialty Start Date End Date No, Physician PCP - General 11/13/24
--- OUTSIDE RECORDS SUMMARY | 2024-11-14 12:35 | XMS_ITS | Referral Summary ---
Author Organization [facility] [address] [place] [address] Phone Care Team Providers Care Manufacturing Intern Name Role Phone No, Physician Primary Care Provider [phone] Encounters Date Type Department Care Team Description 11/13/2024 8:29 AM CDT - 11/13/2024 9:46 AM CDT Emergency [facility] Emergency Department [address] [place] [id number] Jaden Damico MD Shortness of breath (Primary Dx) Discharge Disposition: Discharge to home or self care from Last 3 Months Allergies No known active allergies Medications albuterol [...] suicidal. Assessment & Plan (04/22/2021 2:28 PM PROSTHETIST): He continues to have ups and downs [...] month. Assessment & Plan (02/23/2020 8:33 AM PROSTHETIST): He is doing better, feeling more at [...] is also getting telephone counseling with a [employer]. His mood is up and down. He [...] 05/02/2016 Assessment & Plan (04/22/2021 2:31 PM PROSTHETIST): His weight is basically unchanged. We discussed [...] Years Used Date Smoking Tobacco: Former Cigarettes 1 1994 Smokeless Tobacco: Former Tobacco Cessation:Counseling Given: [...] on file Legal Sex Male 5:39 PM PROSTHETIST Gender Identity Not on file Sexual Orientation [...] 11/13/2024 8:13 AM CDT Plan of Treatment Not on file Procedures Procedure Name Priority Date/Time Associated Diagnosis [...] T hs <6 <=22 ng/L [facility] ([place]) Comment: Interpretive Data For further hscTnT resources including the diagnostic algorithm and an aid in interpretation, copy and paste this link: https://nrl.testcatalog.org/show/hsTrop Current Interpretive Data last revised 2020. Blood 11/13/2024 8:48 AM CDT 11/13/2024 8:52 AM CDT us Jaden Damico MD LAB BLOOD ORDERABLE S Final Result [facility]CDONAL[facility] ([place]) 1 [facility] [address] * Carboxyhemoglobin, venous (11/13/2024 8:48 AM CDT) Carboxyhemoglob in, venous 0.6 0.0 - 2.9 % Comment:Non-Smokers: <3.0%; Smokers <9.0% Blood 11/13/2024 8:48 AM CDT 11/13/2024 8:52 AM CDT us Jaden Damico MD LAB BLOOD ORDERABLE S Final Result ZO[facility]A MCDONALD ([place]) 1 [facility] [place] [address] * eGFR (11/13/2024 8:48 AM CDT) eGFR [...] LAB BLOOD ORDERABLE S Final Result [facility] ([place]) 1 [facility] [place] [address] * (ABNORMAL) Differential, auto (11/13/2024 8:48 AM [...] LAB BLOOD ORDERABLE S Final Result ZOILA HARR[facility] ([place]) 1 [facility] [place] [address] * CBC with auto differential (11/13/2024 8:48 [...] S Final Result [facility] ([place]) 1 [facility] [place] [address] * Comprehensive metabolic panel (11/13/2024 8:48 AM CDT) Sodium 140 135 - 145 mmol/L [facility] ([facility]) Potassium, pl 4.2 3.3 - 4.9 mmol/L [facility] ([place]) Chloride 104 97 - 110 mmol/L [facility] ([place]) CO2 23 22 - 32 mmol/L [facility] ([place]) Anion gap 13 2 - 15 mmol/L [facility] ([place]) BUN 13 6 - 25 mg/dL [facility] ([place]) Creatinine 1.10 0.80 - 1.30 mg/dL [facility] ([place]) Glucose 104 70 - 199 mg/dL [facility] ([place]) Comment: Interpretive Data Fasting glucose [...] BLOOD ORDERABLE S Final Result ZOILA MCDONALD ([place]) 1 [facility] [place] [address] * XR Chest 1 View (11/13/2024 8:37 [...] Leonel Patricia M.D. MM: MM Report ID: [id number] Reading Location: [id number] Procedure Note Leonel Patricia MD - 11/13/2024 [...] Leonel Patricia M.D. MM: MM Report ID: [id number] Reading Location: [id number] Jaden Damico MD IMG XR PROCEDURES F inal Result * ECG 12 lead (11/13/2024 8:37 AM CDT) 11/13/2024 8:37 AM CDT Narrative [facility] - 11/13/2024 2:06 PM CDT Vent Rate: 97 bpm RR Interval: 614 msec [place] Interval: 142 msec QRS Duration: 108 msec QT Interval: 328 msec QTC Interval: 383 msec P-R-T [place]: 43 - 21 - 17 degrees IMPRESSION: SINUS RHYTHM RV conduction delay Somewhat poor R-wave progression Consider left atrial enlargement No prior EKG for comparison Electronically Signed By: Dr Carlito Pike us Jaden Damico MD ECG ORDERABLES Fin al Result [facility] from Last 3 Months Insurance [facility] PPO [facility]PPO Address: [address] [place] [address] [facility] CHOICE PLUS Care Teams Manufacturing Intern Relationship Specialty Start Date End Date No, Physician PCP - General 11/13/24
--- OUTSIDE RECORDS SUMMARY | 2024-11-14 12:35 | XMS_ITS | Encounter Summary ---
Author Organization [facility] Healthcare Address [address] [place] [address] Care Team Providers Care Orthotist Name Role Phone No, Physician Primary Care Provider [phone] Reason for Visit * Reason Comments Shortness of Breath Encounter Details Date Type Department Care Team (Late st Contact Info) Description 11/13/2024 8:29 AM CDT - 11/13/2024 9:46 AM CDT Emergency [facility] Emergency Department [address] [place] [address] Jaden Damico MD [address] [place] [address] Shortness of breath (Primary Dx) Discharge Disposition: Discharge to home or self care Social History Tobacco Use Types Packs/Day Years Used Date Smoking Tobacco: Former Cigarettes 1 - 1994 Smokeless Tobacco: Former Comments:Some day smoker in the past. 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 You were evaluated for and diagnosed with difficulty breathing that may have been related to an occupational exposure. You had an ECG, blood tests, and x-ray that were unremarkable. You should follow-up with your primary doctor in the next week. Return to the ED for significantly increased trouble breathing or other concerns. We sincerely hope you feel better soon! documented in this encounter Medications at Time of Discharge albuterol HFA (PROVENTIL HFA,VENTOLIN HFA) 90 mcg/actuation inhalerIndication s:Exercise-induce d asthma Inhale 2 puffs every 4 (four) hours as needed for wheezing. 18 g 3 11/22/2016 LORazepam (ATIVAN) 1 mg tabletIndications :Reaction, adjustment, with anxious, depressed mood Take 1 tablet (1 mg total) by mouth nightly as needed for anxiety 30 tablet 2 04/13/2021 documented as of this encounter Discharge Disposition Disposition Code Departure Means Destination Comment s Discharge to home or self care documented in this encounter ED Notes * Jaden Damico MD - 11/13/2024 8:30 AM CDT HPI Chief Complaint Patient presents with Shortness of Breath Patient is a 54-year-old man with a history of obesity and asthma who presents with concerns for carbon dioxide toxicity. 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 They have an alarm that sounds when the CO2 level becomes too high which [place] and exhaust system. It went off several times over the last few days. He has been feeling progressively unwell. Specifically reports dyspnea, chest/throat irritation, and headache. Denies fever, chills, leg swelling, abdominalpain, nausea, vomiting, or other complaints. No coworkers with symptoms. Patient History: Past Medical History: Diagnosis Date Chicken pox 1975 COVID-19 01/04/2021 Mild illness with positive test reported by patient, details lacking. Exercise-induced asthma Asthma Non morbid obesity 05/02/2016 Review of Systems Review of Systems Constitutional: Negative for chills and fever. HENT: Positive for sore throat. Negative for congestion and rhinorrhea. Eyes: Negative for visual disturbance. Respiratory: Positive for cough and shortness of breath. Cardiovascular: Negative for chest pain. Gastrointestinal: Negative for abdominal pain, constipation, diarrhea, nausea and vomiting. Genitourinary: Negative for dysuria, frequency and urgency. Musculoskeletal: Negative for myalgias. Skin: Negative for rash. Neurological: Positive for headaches. Negative for seizures and syncope. Psychiatric/Behavioral: Negative for confusion. Physical Exam ED Triage Vitals [11/13/24 0813] Temp Pulse Resp BP SpO2 36.1 ??C (97 ??F) 102 18 (!) 175/89 98 % Temp src Heart Rate Source Patient Position BP Location FiO2 (%) -- -- -- -- -- Height Height Method Weight Weight Method 1.676 m (5' 6) Stated 106.6 kg (235 lb) -- Physical Exam Vitals and nursing note reviewed. Constitutional: General: He is not in acute distress. Appearance: He is not ill-appearing or diaphoretic. HENT: Head: Normocephalic and atraumatic. Mouth/Throat: Mouth: Mucous membranes are moist. Pharynx: No posterior oropharyngeal erythema. Comments: Normal-appearing posterior oropharynx Eyes: General: No scleral icterus. Extraocular Movements: Extraocular movements intact. Cardiovascular: Rate and Rhythm: Normal rate and regular rhythm. Pulses: Normal pulses. Heart sounds: No murmur heard. Pulmonary: Effort: Pulmonary effort is normal. No respiratory distress. Breath sounds: No wheezing or rales. Abdominal: General: There is no distension. Palpations: Abdomen is soft. Tenderness: There is no abdominal tenderness. There is no guarding. Musculoskeletal: General: No swelling. Normal range of motion. Cervical back: Normal range of motion. Skin: General: Skin is warm and dry. Findings: No rash. Neurological: General: No focal deficit present. Mental Status: He is alert and oriented to person, place, and time. Mental status is at baseline. Psychiatric: Mood and Affect: Mood normal. Behavior: Behavior normal. [facility] Medical Decision Making 54-year-old man with a history of obesity and asthma who presents with concerns for carbon dioxide toxicity. Timeline does not really make sense as patient states his symptoms have been worsening since he left work at 5:30 p.m. last night. Possible viral infection. Likely some component of anxiety.Doubt ACS, acute heart failure, PE, pneumonia, pneumothorax, or other emergent condition. Plan: ECG, labs, x-ray, pain control Amount and/or Complexity of Data Reviewed Labs: ordered. Decision-making details documented in ED Course. Radiology: ordered. Decision-making details documented in ED Course. ECG/medicine tests: ordered and independent interpretation performed. Risk OTC drugs. Decision regarding hospitalization. ED Course as of 11/13/24 0921 Time: 11/13 853 Value: XR Chest 1 View Comment: Negative acute By: Jaden Damico MD Time: 11/13 853 Comment: CBC unremarkable By: Jaden Damico MD Time: 11/13 856 Value: Carboxyhemoglobin, venous ECMO: 0.6 Comment: Negative By: Jaden Damico MD Time: 11/13 918 Comment: CMP unremarkable By: Jaden Damico MD Time: 11/14 919 Value: Trop T hs: <6 Comment: Negative By: Jaden Damico MD Time: 11/14 919 Comment: Remains well appearing. Will discharge with PCP follow-up. Return precautions given. By: Jaden Damico MD Final diagnoses: Shortness of breath Jaden Damico MD 11/13/24920 * Jesusita Fuentes RN - 11/13/2024 8:11 AM CDT Patient arrives with concern for CO2 inhalation starting last week. States yesterday, he went to work and the CO2 alarm went off again. Endorses headache, shortness of breath, wheezing and a raspy voice that is abnormal. A&OX4 documented in this encounter Miscellaneous Notes * ED Procedure Note - Jaden Damico MD - 11/13/2024 8:43 AM CDT Associated Order(s): ECG 12 lead Procedure ECG 12 lead Date/Time: 11/13/2024 8:43 AM Performed by: Jaden Damico MD Authorized by: Jaden Damico MD Rate: ECG rate: 97 ECG rate assessment: normal Rhythm: Rhythm: sinus rhythm Conduction: Conduction: abnormal Abnormal conduction: incomplete RBBB and complete RBBB ST segments: ST segments: Abnormal T waves: T waves: non-specific Recommended Follow-up: Recommended follow up: further workup in the ED Comments: Question Brugada sign Jaden Damico MD 11/13/24 0844 documented in this encounter Plan of Treatment Not on file documented as of this encounter Procedures Procedure Name Priority Date/Time Associated Diagnosis Comments TROPONIN T HIGH-SENSITIVITY SERIES (BASELINE, 2HR, 4HR, 6HR) STAT 11/13/2024 8:48 AM CDT CARBOXYHEMOGLOBIN, VENOUS STAT 11/13/2024 8:48 AM CDT EGFR STAT 11/13/2024 8:48 AM CDT DIFFERENTIAL AUTO STAT 11/13/2024 8:4 8 AM CDT CBC WITH AUTO DIFFERENTIAL STAT 11/13/2024 8:48 AM CDT COMPREHENSIVE METABOLIC PANEL STAT 11/13/2024 8:48 AM CDT XR CHEST 1 VIEW ED 11/13/2024 8:37 AM CDT ECG 12-LEAD STAT 11/13/2024 8:37 AM CDT documented in this encounter Results * eGFR (11/13/2024 8:48 AM CDT) eGFR [...] MD LAB BLOOD ORDERABLE S Final Result [facility] ([place]) 1 [facility] Department of Laboratories [place] [id number] * (ABNORMAL) Differential, auto (11/13/2024 8:48 AM [...] revised on 2017. Basophil pct 0.6 % [facility] ([place]) Comment: Interpretive Data Percent cell count reference ranges are not reported, since discordance with absolute values may lead to misinterpretation of CBC data. Current Interpretive Data was last revised on 2017. Blood 11/13/2024 8:48 AM CDT 11/13/2024 8:52 AM CDT us Jaden Damico MD LAB BLOOD ORDERABLE S Final Result [facility] ([place]) 1 [facility] [place] [address] * Carboxyhemoglobin, venous (11/13/2024 8:48 AM CDT) Carboxyhemoglob in, venous 0.6 0.0 - 2.9 % Comment:Non-Smokers: <3.0%; Smokers <9.0% Blood 11/13/2024 8:48 AM CDT 11/13/2024 8:52 AM CDT us Jaden Damico MD LAB BLOOD ORDERABLE S Final Result Performing Organization Address City/[facility]/ZIP Co de Phone Number [facility] ([place]) 1 [facility] [place] [address] * Troponin T high-sensitivity series (baseline, 2hr, 4hr, 6hr) (11/13/2024 8:48 AM CDT) Trop T hs <6 <=22 ng/L [facility] ([place]) Comment: Interpretive Data For further hscTnT resources including the diagnostic algorithm and an aid in interpretation, copy and paste this link: https://nrl.testcatalog.org/show/hsTrop Current Interpretive Data last revised 2020. Blood 11/13/2024 8:48 AM CDT 11/13/2024 8:52 AM CDT Jaden Damico MD LAB BLOOD ORDERABLE S Final Result Performing Organization Address [facility] Co de Phone Number [facility]ON[facility] ([place]) 1 [facility] [place] [address] * Comprehensive metabolic panel (11/13/2024 8:48 AM CDT) Sodium 140 135 - 145 mmol/L [facility] ([place]) Potassium, pl 4.2 3.3 - 4.9 mmol/L [facility] ([place]) Chloride 104 97 - 110 mmol/L [facility] CO2 23 22 - 32 mmol/L [facility] ([place]) Anion gap 13 2 - 15 mmol/L [facility] ([place]) BUN 13 6 - 25 mg/dL [facility] ([place]) Creatinine 1.10 0.80 - 1.30 mg/dL [facility] ([place]) Glucose 104 70 - 199 mg/dL [facility] ([place]) Comment: Interpretive Data Fasting glucose [...] classification and Diagnosis of Diabetes Diabetes Care 202; 46: S19-S40. Current interpretive data was last [...] MD LAB BLOOD ORDERABLE S Final Result [facility] ([place]) 1 [facility] [place] [address] * CBC with auto differential (11/13/2024 8:48 [...] ([place]) MCHC 33.3 32.3 - 35.7 g/dL [facility] ([place]) RDW CV 13.0 11.1 - 14.9 % [facility] ([place]) RDW SD 39.1 35.7 - 48.1 fL [facility] ([place]) NRBC abs 0.00 0.00 - 0.01 K/cumm [facility] ([place]) Blood 11/13/2024 8:48 AM CDT 11/13/2024 8:52 AM CDT us Jaden Damico MD LAB BLOOD ORDERABLE S Final Result [facility] ([place]) 1 [facility] [place] [address] * XR Chest 1 View (11/13/2024 8:37 [...] Leonel Patricia M.D. MM: MM Report ID: [id number] Reading Location: [id number] Procedure Note Leonel Patricia MD - 11/13/2024 [...] Leonel Patricia M.D. MM: MM Report ID: [id number] Reading Location: [id number] us Jaden Damico MD IMG XR PROCEDURES F inal Result * ECG 12 lead (11/13/2024 8:37 AM CDT) 11/13/2024 8:37 AM CDT Narrative [facility] - 11/13/2024 2:06 PM CDT Vent Rate: 97 bpm RR Interval: 614 msec ME Interval: 142 msec QRS Duration: 108 msec QT Interval: 328 msec QTC Interval: 383 msec P-R-T [place]: 43 - 21 - 17 degrees IMPRESSION: SINUS RHYTHM RV conduction delay Somewhat poor R-wave progression Consider left atrial enlargement No prior EKG for comparison Electronically Signed By: Dr Carlito Pike us Jaden Damico MD ECG ORDERABLES Fin al Result [facility] documented in this encounter Visit Diagnoses Diagnosis Shortness of breath- Primary documented in this encounter Administered Medications Inactive Administered Medications - up to 3 most recent administrations Medication Order MAR Action Action Date Dose Rate Site acetaminophen (TYLENOL) tablet 1,000 mg 1,000 mg, oral, Once, On Sat11/13/24 at 0840, For 1 dose Given 11/13/2024 8:57 AM CDT 1,000 mg documented in this encounter Active and Recently Administered Medications Times are shown in CDT. Scheduled Medication Order 11/11/2024 11/12/2024 11/13/2024 acetaminophen (TYLENOL) tablet 1,000 mg (COMPLETED) 1,000 mg, oral, Once, On Sat11/13/24 at 0840, For 1 dose 0857 (Given - Provid er: Amanda Pandya RN) documented in this encounter Orders Medications Ordered That [place] ht Not Have Been Administered Count Last Ordered Date First Ordered Date acetaminophen (TYLENOL) tablet 1,000 mg 1 0 11/13/2024 documented in this encounter Care Teams Orthotist Relationship Specialty Start Date End Date No, Physician PCP - General 11/13/24 documented as of this encounter
--- OUTSIDE RECORDS SUMMARY | 2024-11-14 12:35 | XMS_ITS | Clinical Summary ---
Author Organization [facility] Address [address], [facility] [address] [place] [address] Phone Care Team Providers Care Systems Support Engineer Name Role Phone Unavailable Primary Care Provider [...] Comments Blood Pressure 122/86 05/02/2016 3:29 PM ACCESS SERVICES REPRESENTATIVE Pulse 73 05/02/2016 3:29 PM ACCESS SERVICES REPRESENTATIVE Temperature 36.6 C (97.8 F) 05/02/2016 3:29 PM ACCESS SERVICES REPRESENTATIVE Respiratory Rate 18 05/02/2016 3:29 PM ACCESS SERVICES REPRESENTATIVE Oxygen Saturation 99% 05/02/2016 3:29 PM ACCESS SERVICES REPRESENTATIVE Inhaled Oxygen Concentration - - Weight 112.9 kg (249 lb) 05/02/2016 3:29 PM ACCESS SERVICES REPRESENTATIVE Height 167.6 cm (5' 6) 05/02/2016 3:29 PM ACCESS SERVICES REPRESENTATIVE Body Mass Index 40.19 05/02/2016 3:29 PM ACCESS SERVICES REPRESENTATIVE Plan of Treatment Health Maintenance Due Date Last Done Comments Hepatitis C Virus (HCV) Screening 1971 TdaP Immunization 1971 Hepatitis B Immunization (1 of 3 - 19+ 3-dose series) 1990 Pneumococcal Immunization (5 0+ years) (1 of 2 - PCV) 1990 Cologuard 2016 Colonoscopy 2016 Colorectal Cancer Screening 2016 Immunochemical Fecal Occult Blood 2016 Zoster Immunization (1 of 2) 2021 SARS-COV-2 Immunization ( - season) 2023 Influenza Immunization (#1) 2024 Respiratory Syncytial Virus (RSV) Immunization (Adult) (1 - 1-dose 75+ series) 2046 Human Papillomavirus (HPV) Immunization Aged Out No longer eligible b ased on patient's age to complete this topic Meningococcal Immunization (ACWY) Aged Out No longer eligible based on patient's age to complete this topic Rotavirus Immunization Aged Out No lo nger eligible based on patient's age to complete this topic
[2024-11-14 12:50] VITALS: BP 143/92; PULSE 95; RESP 18; TEMP 37.4; O2SAT 100
--- NOTE | 2024-11-14 13:05 | ED.GENADULT ---
HPI - General Adult General Chief complaint: Upper Respiratory Infection Stated complaint: Chemical Exposure Difficulty Breathing/Fever/Cough Source: patient Mode of arrival: ambulatory Limitations: no limitations History of Present Illness HPI narrative: Pt presents for evaluation of sore throat, headache and fever. 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 On 11/11 a CO2 monitor went off. It was within fifteen feet of the evacuation site. He developed a cough, SOB and sensation that he may pass out. His symptoms lasted for approximately 3 minutes. The following day monitor when off again. He did not experience any abnormal symptoms at that time. Yesterday he went to the emergency department because he was having a headache, cough and sore throat. He states his CO2 level was normal. He states CXR and labs were all normal. He developed a temp of 101.7 F yesterday after leaving the ER. He continues to have symptoms which prompted him to come in today. Related Data Allergies Allergy/AdvReac Type Severity Reaction Status Date / Time No Known Allergies Allergy Verified 10/17/24 12:04 Review of Systems Review of Systems: CONSTITUTIONAL: Reports fever. Denies chills, or sweats. EYES: Denies visual changes, redness, or discharge. ENT: Reports sore throat and raspy voice. Denies rhinorrhea, congestion, or otalgia. CARDIOVASCULAR: Denies chest pain, palpitations, or edema. RESPIRATORY:Reports cough. Denies SOB. GASTROINTESTINAL: Denies abdominal pain, nausea, vomiting, or diarrhea. GENITOURINARY: Denies dysuria or hematuria. SKIN: Denies rash or itching. MUSCULOSKELETAL: Denies back pain, joint pain, or myalgia. NEUROLOGIC: Reports headache. Denies numbness, dizziness, or weakness. PSYCHIATRIC: Denies anxiety or depression. [facility] Past Medical History Medical History No pertinent past medical history Surgical History Surgical History No pertinent past surgical history Family History Family History Mother Family history non-contributory Social History Social History (Updated 11/14/24 @ 13:13 by CARRIE Lopez, ) Smoking status: Never smoker Alcohol intake: current Drinks per week: 15 Alcohol use details: beer, 1-4 drinks up to five days per week Gender identity (if verbalized by the patient): Male Spiritual care concerns: No Exam Narrative: GENERAL: Well-appearing, well-nourished, and in no acute distress. HEAD: Normocephalic, atraumatic. EYES: PERRLA and EOMI. ENT: Nares clear, no rhinorrhea or epistaxis. Mucous membranes moist. Oropharynx without tonsillar hypertrophy exudate or other lesions. Bilateral TMs pearly sauceda nonbulging NECK: Supple. No adenopathy or masses. No carotid bruits or JVD CHEST: Clear to auscultation. No respiratory distress. No wheezes rales or rhonchi HEART: Regular rate and rhythm. No murmur heard. Normal peripheral pulses. ABDOMEN: Soft, nontender, nondistended, normal active bowel sounds. EXTREMITIES: Normal range of motion. No edema. SKIN: Warm, dry, no rash. NEURO: No focal deficits. Alert and oriented x3. PSYCH: Normal mood and affect. Course Course Emergency Course: This is a 54-year-old male who presented for evaluation of headache, sore, and cough. Rapid strep negative. Will send throat culture. He declined other testing. He had a normal workup in the emergency department at [facility] yesterday. Plans to take cepacol for sore throat and OTC agents for headache. Follow up with primary provider. Go to the ER for worsening symptoms. Pt in agreement with plan of care. Level of Care: Express Care Visit Vital Signs Vital signs: Vital Signs Temperature 37.4 C 11/14/24 12:50 Pulse Rate 95 11/14/24 12:50 Respiratory Rate 18 11/14/24 12:50 Blood Pressure 143/92 H 11/14/24 12:50 Pulse Oximetry 100 11/14/24 12:50 Oxygen Delivery Room Air 11/14/24 12:50 Temperature 37.4 C 11/14/24 12:50 Pulse Rate 95 11/14/24 12:50 Respiratory Rate 18 11/14/24 12:50 Blood Pressure 143/92 H 11/14/24 12:50 Pulse Oximetry 100 11/14/24 12:50 Oxygen Delivery Room Air 11/14/24 12:50 Medical Decision Making Vital Signs Vital Signs: Vital Signs Temperature 37.4 C 11/14/24 12:50 Pulse Rate 95 11/14/24 12:50 Respiratory Rate 18 11/14/24 12:50 Blood Pressure 143/92 H 11/14/24 12:50 Pulse Oximetry 100 11/14/24 12:50 Oxygen Delivery Room Air 11/14/24 12:50 Temperature 37.4 C 11/14/24 12:50 Pulse Rate 95 11/14/24 12:50 Respiratory Rate 18 11/14/24 12:50 Blood Pressure 143/92 H 11/14/24 12:50 Pulse Oximetry 100 11/14/24 12:50 Oxygen Delivery Room Air 11/14/24 12:50 Lab Data Labs: Lab Results 11/14/24 Range/Units 13:13 POC Grp A Strep Screen Negative (Negative) Discharge Plan Discharge Clinical Impression: Occupational exposure to air contaminants Patient Disposition: Home Condition: Stable Instructions: Antibiotic Form, Pharyngitis (ED), Acute Headache (DC) Additional Instructions: CEPACOL LOZENGES MAY HELP SORE THROAT TYLENOL, IBUPROFEN OR EXCEDRIN MAY HELP HEADACHE Patient Language: [place] Prescriptions: No Action sulfamethoxazole-trimethoprim [Bactrim DS] 800-160 mg tablet 1 tablet PO Q12H Qty: 14 0RF Follow-up/Referrals: Alize Cesar MD [Physician] - Time of Disposition: 13:19
[2024-11-14 13:15] LABS: EDSTREPNEGPOS1 Negative (Negative)
== END 2024-11-14 13:34 | disposition home or self-care (01) ==
PROVIDERS: Emergency Provider Nurse Practitioner
DX: Z57.39 Occupational exposure to other air contaminants (principal)
CPT/HCPCS: 87081; 87880; 99213; G0463

== ENCOUNTER 2024-12-07 18:08 | Emergency (ER) | payer SELFPAY ==
--- OUTSIDE RECORDS SUMMARY | 2024-12-07 18:12 | XMS_ITS | Clinical Summary ---
Author Organization [facility] Address [address], [facility] [address] [place] [address] Phone Care Team Providers Care Bed And Breakfast Cook Name Role Phone Unavailable Primary Care Provider [...] Comments Blood Pressure 122/86 05/02/2016 3:29 PM FREIGHT AGENT Pulse 73 05/02/2016 3:29 PM FREIGHT AGENT Temperature 36.6 C (97.8 F) 05/02/2016 3:29 PM FREIGHT AGENT Respiratory Rate 18 05/02/2016 3:29 PM FREIGHT AGENT Oxygen Saturation 99% 05/02/2016 3:29 PM FREIGHT AGENT Inhaled Oxygen Concentration - - Weight 112.9 kg (249 lb) 05/02/2016 3:29 PM FREIGHT AGENT Height 167.6 cm (5' 6) 05/02/2016 3:29 PM FREIGHT AGENT Body Mass Index 40.19 05/02/2016 3:29 PM FREIGHT AGENT Plan of Treatment Health Maintenance Due Date [...]
[2024-12-07 18:13] VITALS: BP 120/90; PULSE 75; RESP 16; TEMP 36.7; O2SAT 100
--- OUTSIDE RECORDS SUMMARY | 2024-12-07 18:13 | XMS_ITS | Clinical Summary ---
Author Organization [facility] [address] Address [address] [place] [place] [address] Phone Care Team Providers Care Director Of Trauma Name Role Phone No, Physician Primary Care Provider [phone] Allergies No known active allergies Medications albuterol [...] suicidal. Assessment & Plan (04/22/2021 2:28 PM LOGISTICS ASSOCIATE): He continues to have ups and downs [...] month. Assessment & Plan (02/23/2020 8:33 AM LOGISTICS ASSOCIATE): He is doing better, feeling more at [...] to get some help. He went to [facility] and they told him to talk to me. He is also getting telephone counseling with a [facility]. His mood is up and down. He [...] 05/02/2016 Assessment & Plan (04/22/2021 2:31 PM LOGISTICS ASSOCIATE): His weight is basically unchanged. We discussed [...] CDT - 11/13/2024 9:46 AM CDT Emergency [facility] Emergency Department [address] [place] [address] Jaden Damico MD Shortness of breath (Primary [...] on file Legal Sex Male 5:39 PM LOGISTICS ASSOCIATE Gender Identity Not on file Sexual Orientation [...] S Final Result ZOILA MCDONALD MARIUM) [address] [facility] [place] [address] * Carboxyhemoglobin, venous (11/13/2024 8:48 AM CDT) Carboxyhemoglob in, venous 0.6 0.0 - 2.9 % Comment:Non-Smokers: <3.0%; Smokers <9.0% Blood 11/13/2024 8:48 AM CDT 11/13/2024 8:52 AM CDT Jaden Damico MD LAB BLOOD ORDERABLE S Final Result Performing Organization Address [facility] de Phone Number ZOILA MCDONALD [place]) 1 [facility] [place] [employer] [address] * eGFR (11/13/2024 8:48 AM CDT) eGFR [...] Final Result ZOILA MCDONALD (MARIUM) 1 [facility] [place] [address] * (ABNORMAL) Differential, auto (11/13/2024 8:48 AM [...] Final Result [facility] ([facility]) 1 [facility] [place] [address] * CBC with auto differential (11/13/2024 8:48 [...] Final Result [facility] ([place]) 1 [facility] [place] [address] * Comprehensive metabolic panel (11/13/2024 8:48 AM [...] BLOOD ORDERABLE S Final Result ZOILA MCDONALD ([place]) 1 [facility] [place] [address] * XR Chest 1 View (11/13/2024 8:37 [...] Leonel Patricia M.D. MM: MM Report ID: [id number] Reading Location: [id number] Procedure Note Leonel Patricia MD - 11/13/2024 [...] Leonel Patricia M.D. MM: MM Report ID: [id number] Reading Location: [id number] Jaden Damico MD IMG XR PROCEDURES F inal Result * ECG 12 lead (11/13/2024 8:37 AM CDT) 11/13/2024 8:37 AM CDT Narrative [facility] - 11/13/2024 2:06 PM CDT Vent Rate: 97 bpm RR Interval: 614 msec [place] Interval: 142 msec QRS Duration: 108 msec QT Interval: 328 msec QTC Interval: 383 msec P-R-T [place]: 43 - 21 - 17 degrees IMPRESSION: SINUS RHYTHM RV conduction delay Somewhat poor R-wave progression Consider left atrial enlargement No prior EKG for comparison Electronically Signed By: Dr Carlito Pike Jaden Damico MD ECG ORDERABLES Fin al Result [facility] Continuing Education Records & Resources [facility] from Last 3 Months Insurance [employer] [facility] PPO [facility] CHO[facility] PL[facility] Care Teams Director Of Trauma Relationship Specialty Start Date End Date No, Physician PCP - General 11/13/24
--- NOTE | 2024-12-07 18:16 | ED_ITS ---
HPI - Extremity Problem General Chief complaint: Extremity Problem,Nontraumatic Stated complaint: Left Foot and Leg Swelling Time Seen by Provider: 12/07/24 18:18 Source: patient Mode of arrival: ambulatory Limitations: no limitations History of Present Illness HPI Narrative: 54-year-old male presented for complaint of left foot pain, redness, and swelling. Onset about 4 days. He says prior to the swelling he noted a blister at the base of the 3rd toe which he says is likely due to friction from scratching his itchy athlete's foot. Swelling extends above the ankle. Endorses the swelling is worse at the end of the day. Denies calf pain or swelling. Has applied neosporin. Related Data Allergies Allergy/AdvReac Type Severity Reaction Status Date / Time No Known Allergies Allergy Verified 12/07/24 18:17 Review of Systems Review of Systems: CONSTITUTIONAL: Denies body aches, fever, chills, or sweats. EYES: Denies visual changes, redness, or discharge. ENT: Denies rhinorrhea, congestion CARDIOVASCULAR: Denies chest pain, palpitations, or edema. RESPIRATORY: Denies cough or dyspnea. GASTROINTESTINAL: Denies abdominal pain, nausea, vomiting, or diarrhea. SKIN: reports redness and swelling left foot MUSCULOSKELETAL: Denies back pain, joint pain, or myalgia. NEUROLOGIC: Denies headache, numbness, tingling, or weakness. [facility] Past Medical History Medical History No pertinent past medical history Surgical History Surgical History No pertinent past surgical history Family History Family History Mother Family history non-contributory Social History Social History Smoking status: Never smoker Alcohol intake: current Drinks per week: 15 Alcohol use details: beer, 1-4 drinks up to five days per week Gender identity (if verbalized by the patient): Male Spiritual care concerns: No Comments At time of signature, I have reviewed and agree with nursing past medical, surgical, social and family history unless otherwise noted. Please see nursing chart for further information. There is no relevant family history pertinent to the presenting complaint Exam Narrative: GENERAL: Well-appearing ENT: Mucous membranes moist. Oropharynx without edema, erythema or lesions. NECK: Supple. No lymphadenopathy CHEST: Clear to auscultation. HEART: Regular rate and rhythm. SKIN: Warm, dry. Left foot swelling extending above ankle. erythema noted to 2nd,3rd MTP area. No drainage, or fluctuance. White macerated skin between each toe c/w athletes foot. PPP normal and equal. CMS intact. No calf tenderness, negative homans sign. NEURO: Alert and oriented x3. Course Course Emergency Course: Patient is aware of diagnosis, understands and agrees to treatment plan. Anticipatory guidance given. Patient agrees to follow-up as directed and is aware of reasons to seek care at the emergency department. Portions of this record may have been created with voice recognition software Level of Care: Express Care Visit Vital Signs Vital signs: Reviewed MDM - Extremity (Nontraumatic) MDM Narrative Medical decision making narrative: Discussed physical exam findings c/w cellulitis left foot. Reviewed RX Advised supportive measures and signs/symptoms to go to the ER at length. Pt is appropriate for outpt treatment and f/u. Differential Diagnosis Differential diagnosis: Likely gout, cellulitis, lower extremity edema, deep vein thrombosis of lower extremity and other Discharge Plan Discharge Clinical Impression: Cellulitis Patient Disposition: Home Condition: Stable Instructions: Antibiotic Form, Cellulitis (ED) Additional Instructions: Keep the area clean and dry - cleanse with warm water and mild soap and allow to fully dry. Keep it open to air when possible Elevate the left foot to reduce swelling Take antibiotic as directed Tylenol every 8 hours as needed for pain Watch for worsening symptoms including pain, redness, swelling, streaking, pus/drainage, fever. Go to the ER with any of these symptoms or concerns. Follow up with primary care provider in 1 week Patient Language: Kiswahili Prescriptions: New sulfamethoxazole-trimethoprim [Bactrim DS] 800-160 mg tablet 1 tablet PO Q12H 5 Days Qty: 10 0RF cephalexin 500 mg capsule 500 mg PO Q6H 7 Days Qty: 28 0RF Follow-up/Referrals: PHYSICIAN,[facility] [Primary Care Provider, Internal Medicine] Time of Disposition: 18:29
== END 2024-12-07 18:39 | disposition home or self-care (01) ==
PROVIDERS: Emergency Provider Nurse Practitioner Family
DX: L03.116 Cellulitis of left lower limb (principal)
CPT/HCPCS: 99213; G0463